=== PATIENT | male | born 1940 | race Caucasian/White ===

== ENCOUNTER 2025-03-02 08:00 | Outpatient (RCR) | payer MEDICARE, SELFPAY ==
--- NOTE | 2025-02-20 19:42 | HP.PTEVAL_ITS ---
Patient's Visit Information Visit Information Visit Information: ELLIOT ROSEN is a 84 year old M referred to Physical Therapy by Dr. Anselmo Catalan MD with a diagnosis of L SHLD PAIN AND IMPINGEMENT. Date of Evaluation: 02/20/25 Physical Therapist: Yaritza Ballesteros, PT, Cert MDT Visit Plan Frequency: 1-2x /Week Duration: 2-4 WKS Plan: L SHLD US, ROM, STRETCHING AND STRENGTHENING TO HELP MEET SET GOALS. HEP INST. Subjective Subjective: THIS PATIENT PRESENTS TO PT REPORTING HE FELL IN [place] ABOUT 6 MONTHS AGO BUT WAITED TO GO TO THE DOCTOR UNTIL THEY CAME HOME. HE STATES HE WAS CUTTING A LIMB OFF A TREE AND IT CAME DOWN AND HIT THE LADDER AND KNOCKED HIM OFF. WHEN HE CAME HOME AT [facility] HE WENT TO SEE DR. CATALAN AND HAD AN MRI OF HIS L SHLD. HE REPORTS HE ROTATOR CUFF ISN'T TORN BUT SOMETHING ELSE IS. HE STATES HE GAVE HIM A STEROID SHOT LAST WEEK (~02/14/25) AND NOW HIS SHLD IS MUCH BETTER. STATES HE CAN RAISE HIS ARM A LOT HIGHTER AND HE HAS A LOT LESS PAIN. PATENT DENIES L UE NUMBNESS AND TINGLING. HE REPORTS DR. CATALAN RECOMMENDED THE SHOT AND THERAPY TO TRY TO AVOID SURGERY. INCREASED L SHLD PAIN WITH REACHING OVER HEAD. DECREASED PAIN WITH REST. PMH: IDDM, HTN. ALSO BROKE R WRIST IN FALL AND NOW HAS CAST ON R WRIST. Pain L SHOULDER: Pain Intensity (Out of 10): 2 Pain Intensity Range: 0 and 2 Objective Objective: THIS PATIENT AMBULATES INDEP'LY INTO PT WEARING A CAST ON HIS R WRIST AND NOTHING ON HIS L UE. HE IS MOVING HIS L UE AROUND A LOT SHOWING THIS PT THAT IT IS DOING A LOT BETTER SINCE HAVING THE INJECTION LAST WEAK AND THAT HE ONLY GETS PAIN AT A CERTAIN HIGH REACHING POINT NOW. SENSATION: L UE LIGHT TOUCH SENSATION IS GROSSLY INTACT. PALPATION: PATIENT DENIES TENDERNESS WITH PALPTION OF L SHLD REGION. ROM: AROM OF L SHLD IN STANDING - FLEX 125 DEG, ABD 103 DEG. PROM L SHLD IN SUPINE - FLEX 131 DEG, ER 55 DEG, IR 63 DEG (ROTATION TESTED WITH 60 DEG ABD). PATIENT WITH C/O MILD ERP WITH ROM TESTING ALL PLANES ACTIVELY AND PASSIVELY. STRENGTH: L SHLD FLEX 3-/5, ABD 2+/5, IR 3-/5, ER 3-/5, ELBOW FLEX 4-/5, ELBOW EXT 4-/5. L UE NT DUE TO CAST. POSTURE: FH AND AOPORVA RSH'S. NO TORTICOLIS. Balance/Special Test Scores Quick DASH Score: 30.0000 Goals Goal 1:: DECREASE C/O L SHLD PAIN BY AT LEAST 75% WITH ADL'S. Goal Time Frame: 4-6 Weeks Goal 2:: INCREASE PAINFREE ROM OF L SHLD TO 130 DEG ACTIVELY WITH PAIN 0-2/10 TO IMPROVE ADL FUNCTION Goal Time Frame: 4-6 Weeks Goal 3:: IMPROVE L UE STRENGTH TO 4/5 THROUGHOUT TO IMRPOVE ADL FUNCTION Goal Time Frame: 4-6 Weeks Goal 4:: INDEP HEP Goal Time Frame: 4-6 Weeks Rehabilitation Potential Physical Therapy Diagnosis: L UE STIFFNESS AND WEAKNESS Rehabilitation Potential: Good Anticipated Interventions Patient/Client Instruction: Educate patient on: Condition, Plan of Care and Risk Factors For the Purpose of:: To improve self management Therapeutic Exercise to Include: Strength training, Postural training, Flexibilty training, Passive ROM, Active ROM and Scapular Strength/Stabilization For the Purpose of:: To decrease pain, To increase ROM, To improve muscle performance and motor function, To improve ability to perform ADL's, To increase tolerance to activity/condition/position, To improve ability of physical actions for home/community/work/leisure, To decrease soft tissue restriction, To increase flexibility/ROM and To improve self management Ultrasound (thermal/non thermal): Yes For the Purpose of:: To decrease pain and To improve nutrient delivery to tissue Text: Thank you for the opportunity to evaluate your patient. For Medicare and Medicare HMO plans, please review the plan of care and approve it. It will need to be FAXED BACK to us at [phone] for Medicare purposes. For Medicare only, by signing this I certify the plan of care. Please let me know if there are questions or concerns regarding this plan of care. Physician Signature: Date:
--- NOTE | 2025-03-02 15:17 | HP.PTDCSUM ---
Discharge Summary D/C summary: It has been my pleasure to treat ELLIOT ROSEN referred by Dr. Anselmo Catalan MD, with the diagnosis of L SHLD PAIN AND IMPINGEMENT for a total of 2 visit(s). Discharge Date: 03/02/25 Please see the following information for a summary of their discharge status. Subjective Subjective: PATIENT REPORTS HIS L SHOULDER IS DOING GOOD. HE REPORTS COMPLIANCE WITH HOME EX'S GIVEN. HE REPORTS THERE ISN'T ANYTHING HE CAN'T DO WITH HIS ARM ON A DAILY BASIS. HE DENIES DISTURBED SLEEP. I'M A HAPPY CAMPER. PATIENT REPORTS HE IS HAPPY WITH HIS SHOULDER AND HE IS JUST HOPING THE PAIN DOESN'T COME BACK WHEN THE SHOT WEARS OFF. HE STATES HE DOES HAVE SOME LEFT HAND PAIN THAT HE PLANS TO TALK TO DR. CATALAN ABOUT AT HIS UPCOMING JORDON'T AND HE HAD IT BEFORE HIS PT EVAL BUT DIDN'T WANT TO SAY ANYTHING. HE DENIES INCREASED HAND PAIN WITH THE EX'S. Pain L SHOULDER: Pain Intensity (Out of 10): 2 Overall Improvement % Improvement: 80 Objective Objective/Function: PATIENT IS NOW ABLE TO REACH UP WITH L SHOULDER WITH ACTIVE RANGE OF 137 DEG FLEXION WITH C/O 1-2/10 PAIN. ABD - 140 DEG ER - 65 DEG IR - L4. L SHLD STRENGTH 4/5. HEP INST 1X/DAY L UE: GTB MR'S 2X10 GTB SHLD EXTENSION 2X10 GTB SHLD ADDUCTION 2X10 YTB THEN OTB SHLD ER 2X10 OTB SHLD IR 2X10 TABLE WALK-AWAYS FOR PASSIVE SHLD STRETCHING. Goals Goal 1:: DECREASE C/O L SHLD PAIN BY AT LEAST 75% WITH ADL'S. Goal Progress: Goal Met Goal 2:: INCREASE PAINFREE ROM OF L SHLD TO 130 DEG ACTIVELY WITH PAIN 0-2/10 TO IMPROVE ADL FUNCTION Goal Progress: Goal Met Goal 3:: IMPROVE L UE STRENGTH TO 4/5 THROUGHOUT TO IMRPOVE ADL FUNCTION Goal Progress: Goal Met Goal 4:: INDEP HEP Goal Progress: Goal Met Plan Plan: D/C TO HEP - PATIENT AGREEABLE. D/C Information d/c sentence: If there are questions or concerns regarding this patient's physical therapy, please feel free to call me at [phone]. Thank you for the referral of this patient. Sincerely, Yaritza Ballesteros, PT, Cert MDT Balance/Gait/Functional tests Balance/Special Test Scores Quick DASH Score: 12.5000 Improvement % Improvement: 80
== END 2025-03-02 19:00 | disposition home or self-care (01) ==
LOC: PT 08:00
PROVIDERS: Referring Provider Orthopaedic Surgery Hand Surgery; Visit Provider Orthopaedic Surgery Hand Surgery
DX: M25.512 Pain in left shoulder (principal); M75.42 Impingement syndrome of left shoulder
CPT/HCPCS: 97162; 97530